=== PATIENT | male | born 1965 | race African-American/Black ===

== ENCOUNTER 2020-06-14 05:05 | Day surgery (SDC) | payer BC ==
[2020-06-12 15:16] VITALS: BMI 24.9
[2020-06-14 11:54] VITALS: TEMP 97.5
[2020-06-14 13:39] VITALS: BP 127/84; PULSE 59
[2020-06-14 13:58] LABS: BASO % 0.9 % (0-2.0); EOS % 1.2 % (0-4.5); HEMATOCRIT 41.5 % (35.4-49); HEMOGLOBIN 13.8 GM/dL (11.7-16.9); LYMPH % 58.6 % (8-40); MCHC 33.2 g/dl (32.0-35.9); MEAN CELL VOLUME 99.2 fl (80-96); MEAN PLT VOLUME 8.9 fl (7.5-11.1); MONO % 9.2 % (3.8-10.2); NEUT % 30.1 % (42.8-82.8); PLATELET COUNT 248 K/MM3 (134-434); RBC 4.19 M/mm3 (4.00-5.60); RDW 13.1 % (11.9-15.9); WHITE BLOOD COUNT 5.3 K/mm3 (4.0-10.0)
[2020-06-14 14:05] LABS: INR 1.06 (0.83-1.09)
[2020-06-14 14:23] LABS: POTASSIUM 4.6 mmol/L (3.5-5.1)
[2020-06-14 14:24] LABS: CALCIUM 9.3 mg/dL (8.5-10.1)
[2020-06-14 14:25] LABS: ALBUMIN 3.8 g/dl (3.4-5.0)
[2020-06-14 14:28] LABS: CREATININE 0.9 mg/dL (0.55-1.3)
[2020-06-14 14:29] LABS: BILIRUBIN,TOTAL 0.5 mg/dL (0.2-1)
[2020-06-14 14:30] LABS: TOT PROT 7.1 g/dl (6.4-8.2)
== END 2020-06-14 13:50 | disposition home or self-care (01) ==
LOC: JASU-ENDO 05:05
PROVIDERS: ATTEND Internal Medicine Gastroenterology
PROC: 0DBH8ZX Excision of Cecum, Via Natural or Artificial Opening Endoscopic, Diagnostic (ICD-10-PCS; 2020-06-14)
PROC: 0DBK8ZX Excision of Ascending Colon, Via Natural or Artificial Opening Endoscopic, Diagnostic (ICD-10-PCS; 2020-06-14)
PROC: 0DBH8ZX Excision of Cecum, Via Natural or Artificial Opening Endoscopic, Diagnostic (ICD-10-PCS; 2020-06-14)
PROC: 3E0H8KZ Introduction of Other Diagnostic Substance into Lower GI, Via Natural or Artificial Opening Endoscopic (ICD-10-PCS; 2020-06-14)
PROC: 0DBK8ZX Excision of Ascending Colon, Via Natural or Artificial Opening Endoscopic, Diagnostic (ICD-10-PCS; principal; 2020-06-14 10:00)
DX: Z12.11 Encounter for screening for malignant neoplasm of colon (principal); Z80.0 Family history of malignant neoplasm of digestive organs; D12.2 Benign neoplasm of ascending colon; D12.0 Benign neoplasm of cecum; K64.8 Other hemorrhoids
CPT/HCPCS: 36415; 80053; 82378; 82728; 83540; 83550; 85025; 85610; 88305-TC

== ENCOUNTER 2020-10-16 04:11 | Inpatient (IN) | payer BC ==
[2020-10-15 16:38] VITALS: BMI 24.3
[2020-10-16] MEDS ORDERED: ALVIMOPAN 12 MG CAP PO ONE (09:10)
[2020-10-16] MEDS ORDERED: BUPIVACAINE LIPOSOME/PF (EXPAREL) 266 MG/20 ML VIAL ONE (09:36)
[2020-10-16] MEDS ORDERED: ALVIMOPAN 12 MG CAP PO SCH (10:00)
[2020-10-16] MEDS ORDERED: MIDAZOLAM HCL 2 MG/2 ML SINGLE DOSE VIAL ONE ×2 (11:04)
[2020-10-16] MEDS ORDERED: ACETAMINOPHEN INJECTION 100 ML IVPB ONE ×2 (11:17→16:07)
[2020-10-16] MEDS ORDERED: PROPOFOL 20 ML ONE (11:27)
[2020-10-16] MEDS ORDERED: ROCURONIUM BROMIDE 50 MG/5 ML SYRINGE ONE (11:27)
[2020-10-16] MEDS ORDERED: LIDOCAINE HCL/PF 2% SDV 5ML VIAL ONE (11:27)
[2020-10-16] MEDS ORDERED: ceFAZolin SODIUM 1 GM VIAL IVPB ONE (11:45)
[2020-10-16] MEDS ORDERED: ceFAZolin SODIUM 1 GM VIAL ONE (11:46)
[2020-10-16] MEDS ORDERED: ONDANSETRON 4 MG/2 ML VIAL IVPUSH PRN (12:55)
[2020-10-16] MEDS ORDERED: LACTATED RINGERS SOLUTION 1,000 ML IV SCH (13:00)
[2020-10-16] MEDS ORDERED: INDOCYANINE GREEN 25 MG/10 ML VIAL IVPUSH ONE ×2 (13:27→14:20)
[2020-10-16] MEDS ORDERED: DEXAMETHASONE SOD PHOSPHATE 4 MG/1 ML VIAL ONE (15:02)
[2020-10-16] MEDS ORDERED: KETOROLAC TROMETHAMINE 30 MG/1 ML VIAL IVPUSH PRN (15:29)
[2020-10-16] MEDS ORDERED: morphine SULFATE 4 MG/ML VIAL IVPUSH PRN (15:30)
[2020-10-16] MEDS: SODIUM CHLORIDE 1,000 ML IV SCH (16:40)
[2020-10-16] MEDS ORDERED: KETOROLAC TROMETHAMINE 30 MG/1 ML VIAL ONE (17:11)
[2020-10-16] MEDS ORDERED: ACETAMINOPHEN 1000 MG/100 ML VIAL (NON FORMULARY) IVPB ONE (17:13)
[2020-10-16] MEDS: ACETAMINOPHEN 1000 MG/100 ML VIAL (NON FORMULARY) IVPB SCH ×3 (17:14→21:04)
[2020-10-16] MEDS ORDERED: KETOROLAC TROMETHAMINE 30 MG/1 ML VIAL IM ONE (17:25)
[2020-10-16] MEDS ORDERED: LORazepam 2 MG/ML SDV VIAL IVPUSH PRN (18:20)
[2020-10-16] MEDS: HEPARIN NA (PORCINE) 5,000 UNITS/ML 1ML VIAL SQ SCH (21:04)
[2020-10-16] MEDS: LATANOPROST 0.005% OPHTH SOLN 2.5ML BOTTLE OU SCH (21:06)
[2020-10-16] MEDS ORDERED: PATIENT'S OWN MEDICATION (NON-FORMULARY) (Bimatoprost [Lumigan] 7.5 ML Drops) OU SCH (22:00)
[2020-10-17] MEDS: ACETAMINOPHEN 1000 MG/100 ML VIAL (NON FORMULARY) IVPB SCH ×4 (03:18→21:05)
[2020-10-17] MEDS: HEPARIN NA (PORCINE) 5,000 UNITS/ML 1ML VIAL SQ SCH ×3 (05:23→21:04)
[2020-10-17 09:04] LABS: HEMATOCRIT 36.1 % (35.4-49); HEMOGLOBIN 12.3 GM/dL (11.7-16.9); MCH 34.1 pg (25.7-33.7); MEAN CELL VOLUME 100.4 fl (80-96); MEAN PLT VOLUME 9.5 fl (7.5-11.1); PLATELET COUNT 223 K/MM3 (134-434); RBC 3.59 M/mm3 (4.00-5.60); RDW 12.9 % (11.9-15.9); WHITE BLOOD COUNT 9.6 K/mm3 (4.0-10.0)
[2020-10-17 09:20] LABS: MAGNESIUM 2.3 mg/dL (1.8-2.4)
[2020-10-17 09:22] LABS: ALBUMIN 3.1 g/dl (3.4-5.0); BLOOD UREA NITROGEN 14.2 mg/dL (7-18)
[2020-10-17 09:24] LABS: CREATININE 0.8 mg/dL (0.55-1.3)
[2020-10-17 09:25] LABS: PHOSPHOROUS 3.4 mg/dL (2.5-4.9); TOT PROT 5.7 g/dl (6.4-8.2)
[2020-10-17 09:26] LABS: BILIRUBIN,TOTAL 0.5 mg/dL (0.2-1)
[2020-10-17] MEDS ORDERED: ENOXAPARIN NA (PORCINE) 40 MG/0.4 ML DISP.SYRIN SQ SCH (10:00)
[2020-10-17] MEDS: THIAMINE HCL 200 MG/2 ML VIAL IVPB SCH (10:14)
[2020-10-17] MEDS: SODIUM CHLORIDE 1,000 ML IV SCH (16:11)
[2020-10-17] MEDS: LATANOPROST 0.005% OPHTH SOLN 2.5ML BOTTLE OU SCH (21:06)
[2020-10-17] MEDS ORDERED: MELATONIN 5 MG TABLETS PO ONE (21:14)
[2020-10-18] MEDS: ACETAMINOPHEN 1000 MG/100 ML VIAL (NON FORMULARY) IVPB SCH ×2 (03:28→09:42)
[2020-10-18] MEDS: HEPARIN NA (PORCINE) 5,000 UNITS/ML 1ML VIAL SQ SCH ×3 (05:52→21:04)
[2020-10-18 08:58] LABS: BASO % 0.5 % (0-2.0); EOS % 0.2 % (0-4.5); HEMATOCRIT 35.5 % (35.4-49); HEMOGLOBIN 12.1 GM/dL (11.7-16.9); LYMPH % 24.5 % (8-40); MCH 34.1 pg (25.7-33.7); MEAN CELL VOLUME 100.3 fl (80-96); MEAN PLT VOLUME 9.7 fl (7.5-11.1); MONO % 5.9 % (3.8-10.2); NEUT % 68.9 % (42.8-82.8); PLATELET COUNT 221 K/MM3 (134-434); RBC 3.54 M/mm3 (4.00-5.60); RDW 12.9 % (11.9-15.9); WHITE BLOOD COUNT 7.5 K/mm3 (4.0-10.0)
[2020-10-18 09:27] LABS: BLOOD UREA NITROGEN 8.9 mg/dL (7-18); CALCIUM 8.2 mg/dL (8.5-10.1); MAGNESIUM 2.2 mg/dL (1.8-2.4)
[2020-10-18 09:30] LABS: CREATININE 0.7 mg/dL (0.55-1.3)
[2020-10-18] MEDS: THIAMINE HCL 200 MG/2 ML VIAL IVPB SCH (09:44)
[2020-10-18] MEDS ORDERED: ACETAMINOPHEN 325 MG TABLET (FP) PO PRN (10:53)
[2020-10-18] MEDS: LATANOPROST 0.005% OPHTH SOLN 2.5ML BOTTLE OU SCH (21:05)
[2020-10-18] MEDS ORDERED: MELATONIN 5 MG TABLETS PO SCH (22:00)
[2020-10-19] MEDS: HEPARIN NA (PORCINE) 5,000 UNITS/ML 1ML VIAL SQ SCH (05:28)
[2020-10-19 07:59] LABS: BASO % 0.3 % (0-2.0); EOS % 1.1 % (0-4.5); HEMATOCRIT 36.4 % (35.4-49); HEMOGLOBIN 12.7 GM/dL (11.7-16.9); LYMPH % 27.5 % (8-40); MCH 34.6 pg (25.7-33.7); MCHC 34.9 g/dl (32.0-35.9); MEAN CELL VOLUME 99.1 fl (80-96); MEAN PLT VOLUME 8.8 fl (7.5-11.1); MONO % 9.4 % (3.8-10.2); NEUT % 61.7 % (42.8-82.8); PLATELET COUNT 244 K/MM3 (134-434); RBC 3.67 M/mm3 (4.00-5.60); RDW 12.7 % (11.9-15.9); WHITE BLOOD COUNT 6.5 K/mm3 (4.0-10.0)
[2020-10-19 08:14] LABS: ALBUMIN 3.2 g/dl (3.4-5.0); BLOOD UREA NITROGEN 10.6 mg/dL (7-18); CALCIUM 8.9 mg/dL (8.5-10.1)
[2020-10-19 08:15] LABS: MAGNESIUM 1.9 mg/dL (1.8-2.4)
[2020-10-19 08:18] LABS: CREATININE 0.7 mg/dL (0.55-1.3)
[2020-10-19 08:19] LABS: BILIRUBIN,TOTAL 0.5 mg/dL (0.2-1)
[2020-10-19 08:20] LABS: TOT PROT 6.4 g/dl (6.4-8.2)
[2020-10-19] MEDS ORDERED: MULTIVITAMINS (DAILY MVI) TABLET (FP) PO SCH (10:00)
[2020-10-19 10:11] VITALS: BP 152/87; PULSE 70; TEMP 98.4
== END 2020-10-19 18:29 | disposition home or self-care (01) | DRG 331 ==
LOC: J2C 04:11 → EDSTATUS 10:18 → J8W 17:41
PROVIDERS: ADMIT Surgery; ATTEND Nurse Practitioner Family
PROC: 0D1B4ZH Bypass Ileum to Cecum, Percutaneous Endoscopic Approach (ICD-10-PCS; 2020-10-16)
PROC: 8E0W4CZ Robotic Assisted Procedure of Trunk Region, Percutaneous Endoscopic Approach (ICD-10-PCS; 2020-10-16)
PROC: 0DBK4ZZ Excision of Ascending Colon, Percutaneous Endoscopic Approach (ICD-10-PCS; principal; 2020-10-16 11:00)
DX: D12.2 Benign neoplasm of ascending colon (principal); I10 Essential (primary) hypertension; R01.1 Cardiac murmur, unspecified; H40.9 Unspecified glaucoma; E78.5 Hyperlipidemia, unspecified; F10.10 Alcohol abuse, uncomplicated
CPT/HCPCS: 36415; 80048; 80053; 80061; 83036; 83721; 83735; 84100; 85025; 85027; 86850; 86900; 86901; 93306-TC; 94010; 94760; 97116-GP; 97161-GP; J0131; J1644